=== PATIENT | female | born 1945 | race Caucasian/White ===

== ENCOUNTER 2017-08-25 08:51 | Emergency (ER) | payer MEDICARE, BC ==
[2017-08-25 09:26] LABS: #Eosinphils 0.2 thou/uL (0.0-0.7); #Monocytes 0.3 thou/uL (0.11-0.59); #Neutrophils 1.8 thou/uL (1.40-6.50); %Basophils 1.1 % (0.0-1.0); %Eosinophils 5.9 % (0.0-10.0); %Lymphocytes 28.7 % (21.0-51.0); %Monocytes 9.7 % (0.0-10.0); Hematocrit 46.4 % (36.0-47.0); Mean Platelet Volume 7.1 fL (7.4-10.4); Red Blood Cell (RBC) Count 5.05 mill/uL (4.20-5.40); White Blood Cell (WBC) Count 3.4 thou/uL (4.8-10.8)
[2017-08-25 09:45] LABS: ALT (SGPT) 28 U/L (8-55); AST (SGOT) 22 U/L (5-34); Alkaline Phosphatase 91 U/L (40-150); Anion Gap 14 mmol/L (10-20); BUN (Urea Nitrogen) 17 mg/dL (9.8-20.1); Bilirubin, Total 0.5 mg/dL (0.2-1.2); Calc. Creatinine Clearance 0 mL/min (70-130); Calcium 9.4 mg/dL (7.8-10.44); Carbon Dioxide 25 mmol/L (23-31); Chloride 106 mmol/L (98-107); Estimated GFR-MDRD 47; Globulin 3.2 g/dL (2.4-3.5)
== END 2017-08-25 10:33 | disposition home or self-care (01) ==
LOC: ERS 08:51
DX: L03.116 Cellulitis of left lower limb (principal); L03.114 Cellulitis of left upper limb; E03.9 Hypothyroidism, unspecified
CPT/HCPCS: 36415; 80053; 85025; 96372; J3490

== ENCOUNTER 2017-08-26 14:12 | Emergency (ER) | payer MEDICARE, BC ==
[2017-08-26] MEDS ORDERED: Vancomycin HCl 1 GM in Premix Bag 1 BAG IVPB SCH (15:19)
[2017-08-26] MEDS ORDERED: Piperacillin/Tazobactam 3.375 GM in Sodium Chloride 0.9% 100 ML IVPB SCH (15:45)
[2017-08-26 15:56] LABS: #Eosinphils 0.2 thou/uL (0.0-0.7); #Lymphocytes 1.1 thou/uL (1.20-3.40); #Monocytes 0.3 thou/uL (0.11-0.59); %Basophils 0.4 % (0.0-1.0); %Eosinophils 6.8 % (0.0-10.0); %Lymphocytes 29.1 % (21.0-51.0); %Monocytes 8.4 % (0.0-10.0); Mean Platelet Volume 7.3 fL (7.4-10.4); Red Blood Cell (RBC) Count 4.85 mill/uL (4.20-5.40); White Blood Cell (WBC) Count 3.6 thou/uL (4.8-10.8)
[2017-08-26 16:22] LABS: Anion Gap 12 mmol/L (10-20); BUN (Urea Nitrogen) 16 mg/dL (9.8-20.1); Calc. Creatinine Clearance 0 mL/min (70-130); Calcium 9.8 mg/dL (7.8-10.44); Carbon Dioxide 26 mmol/L (23-31); Chloride 104 mmol/L (98-107); Estimated GFR-MDRD 56
--- NOTE | 2017-08-26 18:06 | ULT ---
DOPPLER VENOUS ULTRASOUND OF THE LEFT LOWER EXTREMITY: Indication: Left lower leg pain with rash. TECHNIQUE: Bowser scale, color Doppler, and vascular duplex with spectral analysis was performed of the deep veno us structures of both lower extremities. The common femoral vein, superficial femoral vein, poplitea l vein, posterior tibial vein, proximal greater saphenous, and proximal profunda veins were assessed bilaterally. FINDINGS: Normal compression, flow, and augmentation is seen within the deep venous structures of the left low er extremity. IMPRESSION: No DVT within the left lower extremity. POS: LUIS ANTONIO
--- NOTE | 2017-08-26 21:16 | CON ---
DATE OF CONSULTATION: 08/26/2017 REQUESTING PHYSICIAN: dwight Serrano in the Emergency Department. REASON FOR CONSULTATION: Cellulitis. PRIMARY CARE PHYSICIAN: Dr. Aníbal Rojas. HISTORY OF PRESENT ILLNESS: Ms. Castillo is a very pleasant 72-year-old white female with increased redness, pain and itchiness, discomfort to her left lower extremity. She was in the Emergency Depar tment yesterday where she was diagnosed with cellulitis. She got some IV antibiotics and was switch ed over to p.o. clindamycin and sent home. She was not placed on any elevation or compression. The patient had no fevers or chills, no chest pain or shortness of breath, she had no increased white b lood cell count yesterday. Today, she comes back because the redness seems to be a little bit worse. She has no increased pain , so has no fevers or chills, no diarrhea or constipation, no nausea, vomiting, chest pain or cough or sputum production. In the Emergency Department, further workup showed her to be afebrile with a normal white blood cell count. We were called for possible admission for \\\\"failed outpatient therapy.\\\\" She has no other current complaints. PAST MEDICAL HISTORY: 1. Hypothyroidism. 2. History of renal stones. PAST SURGICAL HISTORY: Includes left breast cyst removal remotely. HOME MEDICATIONS: 1. Biotin. 2. Aspirin 81 mg daily. 3. Levothyroxine 100 mcg daily. 4. Clindamycin 300 mg p.o. q.i.d. started yesterday. ALLERGIES: NKDA. FAMILY HISTORY: Negative for clotting or bleeding disorder. No immune dysfunction. No history of coronary disease. SOCIAL HISTORY: Negative for habits x3. She is . Her must be having hand surgery t omorrow. REVIEW OF SYSTEMS: A 10-point review of systems was performed, negative for all other systems excep t stated as per HPI. PHYSICAL EXAMINATION: VITAL SIGNS: Temperature 98.1, pulse 78, blood pressure 150/61, respiratory rate 16 and satting 97% on room air. GENERAL: She is awake. She is alert. She is oriented x3. She is a well-developed, well-nourished , elderly white female who appears to be in no acute distress. HEENT: Normocephalic and atraumatic. Pupils are equal, round and reactive to light bilaterally. M ucous membranes are moist. She had no visible lesions. No thrush. NECK: Supple. She has no lymphadenopathy, no JVD, no thyromegaly. She has normal carotid upstroke . LUNGS: Clear to auscultation bilaterally without wheezes, rales or rhonchi. CARDIOVASCULAR: Normal cardiac and regular. She has no audible murmurs. Normal S1 and S2. ABDOMEN: Soft. It is nontender and nondistended. No masses, no organomegaly. She has normoactive bowel sounds present in all 4 quadrants. EXTREMITIES: No cyanosis, no clubbing. She has trace edema of her bilateral lower extremities. Daniela lebron has some blotchy redness outlined on her left lower extremity that appears to be just outside the borders from yesterday. It is slightly tender and slightly increased heat. Review of her toes show s she does have some very mild tinea pedis. She does have onychomycosis in several areas and some c allus formation. MUSCULOSKELETAL: is normal to inspection. She has no inflamed joints. No palpable joint effusion. NEUROLOGIC: Cranial nerves II-XII are grossly intact without any focal deficits, normal speech, and 5/5 strength. LABORATORY DATA: CMP is completely normal. Lactic acid 1.0. Liver functions are from yesterday. White blood cell count today is 3.6, hemoglobin 14.6, hematocrit of 45 and platelets of 201,000. IMAGING DATA: Ultrasound today showed no evidence of DVT. PLAN: 1. Streptococcal cellulitis: Likely group A strep. The patient was on clindamycin, which is bacte riostatic and will be slow to show improvement. The patient did not get any elevation nor compressi on, with extra-toxin production would have increased redness and edema dependently. I will place Ke rlix and Coban wrap, I have encouraged the patient to go by the pharmacy tonight or tomorrow and get some compression stockings to wear to keep that site as she can tolerate. I will start her on Kefl ex 500 t.i.d. for 14 days and continue Keflex for the next 72 hours and then she can stop that. In total, she will need to wear the compression for the next 2-3 weeks and she is to follow up with the primary doctor within next week or so. She was instructed to return back to the Emergency Departme for increased temperature greater than or equal to 101.0, increasing pain, or worsening despite t aking the antibiotics. 2. Hypothyroidism. We will continue levothyroxine.
== END 2017-08-26 19:01 | disposition home or self-care (01) ==
LOC: ERS 14:12
DX: L03.116 Cellulitis of left lower limb (principal); E03.9 Hypothyroidism, unspecified; Z79.82 Long term (current) use of aspirin; Z79.899 Other long term (current) drug therapy
CPT/HCPCS: 80048; 83605; 85025; 96365; J2543; J3370; J7050

== ENCOUNTER 2017-08-28 14:22 | Outpatient (CLI) | payer MEDICARE, BC ==
--- NOTE | 2017-08-28 17:30 | ULT ---
CAROTID ARTERIAL DOPPLER ULTRASOUND 08/28/17 COMPARISON: None. HISTORY: Right carotid arterial calcifications, assess for carotid artery stenosis. TECHNIQUE: Multiplanar vinson scale sonographic imaging of the arterial structures of the neck obtained with colo r flow and spectral analysis. FINDINGS: Antegrade blood flow and normal arterial waveforms are seen within the carotid and vertebral system bilaterally. VESSELS PSV (cm/s) EDV (cm/s) Right CCA 94 18 Right ICA 104 58 Right ECA 109 9 Left CCA 73 16 Left ICA 128 41 Left ECA 89 6 ICA/CCA ratio is 1.1 on the right and 1.8 on the left. IMPRESSION: Mildly elevated velocity within the left internal carotid artery, correlating with a moderate degree of stenosis (50-69%). POS: LUIS ANTONIO
== END 2017-08-28 14:23 | disposition home or self-care (01) ==
LOC: ULT 14:22
PROVIDERS: ATTEND Family Medicine
DX: I65.21 Occlusion and stenosis of right carotid artery (principal)
CPT/HCPCS: 93880

== ENCOUNTER 2022-08-22 04:51 | Inpatient (IN) | payer MEDICARE, BC ==
[2022-08-22] MEDS ORDERED: FENTANYL 50 MCG/ML VIAL 50 MCG/ML VIAL ONE ×2 (05:06→06:51)
[2022-08-22] MEDS ORDERED: Ondansetron PF 4 MG/2 ML Vial ONE ×2 (05:07→16:48)
[2022-08-22 06:30] LABS: Hemoglobin 14.1 g/dL (12.0-16.0); Mean Corpuscular HGB CONC 31.9 g/dL (32.0-36.0); Mean Corpuscular Hemoglobin 28.9 pg (27.0-31.0); Mean Corpuscular Volume 90.8 fl (78.0-98.0); Mean Platelet Volume 8.2 fL (7.4-10.4); Platelet Count 195 thou/uL (130-400); RBC Distribution Width 12.6 % (11.5-14.5); Red Blood Cell (RBC) Count 4.86 mill/uL (4.20-5.40); White Blood Cell (WBC) Count 17.3 thou/uL (4.8-10.8)
[2022-08-22 06:44] LABS: Band 45 % (5-11); MDiff Complete? YES; Metamyelocyte 1 % (0-0); Monocytes 4 % (0-10); Neutrophil 50 % (42-75); Platelet Morphology Comment Appears Adequate; RBC Morphology Normal; Reflex for Review?? YES
[2022-08-22 07:26] LABS: ALT (SGPT) 35 U/L (8-55); AST (SGOT) 34 U/L (5-34); Albumin 3.9 g/dL (3.4-4.8); Alkaline Phosphatase 98 U/L (40-110); Anion Gap 20 mmol/L (10-20); BUN (Urea Nitrogen) 18 mg/dL (9.8-20.1); Calc. Creatinine Clearance 0 mL/min (70-130); Calcium 9.7 mg/dL (7.8-10.44); Carbon Dioxide 20 mmol/L (23-31); Chloride 102 mmol/L (98-107); Estimated GFR 38; Globulin 3.3 g/dL (2.4-3.5); Glucose 203 mg/dL (83-110); Lipase 9 U/L (8-78); Potassium 4.6 mmol/L (3.5-5.1); Protein, Total 7.2 g/dL (5.8-8.1); Sodium 137 mmol/L (136-145)
[2022-08-22 08:06] LABS: Bacteria/HPF 2+ HPF (None Seen); Bilirubin Negative (Negative); Blood, Urine Negative (Negative); Clarity Clear (Clear); Glucose, Urine (Dipstick) Normal (Negative); Ketone, Urine Negative (Negative); Leukocyte 500 Leu/uL (Negative); Nitrite Negative (Negative); Protein, Urine (Dipstick) 10 mg/dL (Neg-Trace); Specific Gravity, Urine 1.021 (1.002-1.036); Squamous Epithelial 0-3 HPF (0-3); Urobilinogen Normal mg/dL (Less than 2); WBC/HPF Greater than 50 HPF (0-3); pH, Urine 7.5 (5.0-9.0)
[2022-08-22] MEDS ORDERED: Ketorolac Tromethamine 30 MG/ML VIAL ONE (08:52)
[2022-08-22] MEDS ORDERED: cefTRIAXone\\ROCEPHIN 2 GM VIAL ONE (08:52)
[2022-08-22] MEDS ORDERED: Morphine 4 MG/ML VIAL ONE (08:52)
[2022-08-22] MEDS ORDERED: Iopamidol-370 76% 500 ML 1 ML ONE (09:36)
[2022-08-22] MEDS ORDERED: Ondansetron PF 4 MG/2 ML Vial IVP PRN (10:00)
[2022-08-22] MEDS ORDERED: Acetaminophen 325 MG TAB PO PRN (10:00)
[2022-08-22] MEDS ORDERED: Ondansetron ODT 4 MG TAB PO PRN (10:00)
[2022-08-22] MEDS ORDERED: Acetaminophen 650 MG Suppository PR PRN (10:00)
[2022-08-22 10:01] LABS: SARS-CoV-2 NAA Rapid Test Not Detected (NotDetected)
[2022-08-22 12:01] VITALS: BMI 25.5
[2022-08-22] MEDS: Morphine 4 MG/ML VIAL SLOW IVP PRN (13:58)
[2022-08-22] MEDS: Sodium Chloride 0.9% 1,000 ML IV SCH ×2 (14:00→20:00)
[2022-08-22] MEDS ORDERED: fentaNYL Citrate/PF 100 MCG/2 ML SYRINGE ONE (15:57)
[2022-08-22] MEDS ORDERED: B & O 30 MG SUPP ONE (15:57)
[2022-08-22] MEDS ORDERED: Levofloxacin 500 mg/D5W 100 ml Premix Bag ONE (16:32)
[2022-08-22] MEDS ORDERED: PROPOFOL 200 MG/20 ML VIAL ONE (16:48)
[2022-08-22] MEDS ORDERED: Dexamethasone 20 MG/5 ML VIAL ONE (16:48)
[2022-08-23] MEDS ORDERED: [UNRECOGNIZED DRUG - REMARK] IVPB PRN (02:31)
[2022-08-23 03:28] LABS: Lactic Acid 1.4 mmol/L (0.5-2.2)
[2022-08-23 03:39] LABS: Anion Gap 13 mmol/L (10-20); BUN (Urea Nitrogen) 21 mg/dL (9.8-20.1); Calc. Creatinine Clearance 44 mL/min (70-130); Calcium 9.2 mg/dL (7.8-10.44); Carbon Dioxide 20 mmol/L (23-31); Chloride 107 mmol/L (98-107); Estimated GFR 47; Glucose 171 mg/dL (83-110); Potassium 4.6 mmol/L (3.5-5.1); Sodium 135 mmol/L (136-145)
[2022-08-23] MEDS: Sodium Chloride 0.9% 1,000 ML IV SCH ×2 (04:32→18:30)
[2022-08-23 04:47] LABS: Band 44 % (5-11); Hemoglobin 12.3 g/dL (12.0-16.0); Lymphocytes 4 % (21-51); MDiff Complete? YES; Mean Corpuscular HGB CONC 32.3 g/dL (32.0-36.0); Mean Corpuscular Hemoglobin 30.1 pg (27.0-31.0); Mean Corpuscular Volume 93.5 fl (78.0-98.0); Mean Platelet Volume 7.5 fL (7.4-10.4); Monocytes 3 % (0-10); Neutrophil 49 % (42-75); Platelet Count 162 thou/uL (130-400); RBC Distribution Width 12.6 % (11.5-14.5); Red Blood Cell (RBC) Count 4.08 mill/uL (4.20-5.40); White Blood Cell (WBC) Count 16.5 thou/uL (4.8-10.8)
[2022-08-23] MEDS ORDERED: cefTRIAXone\\ROCEPHIN 1 GM in Sodium Chloride 0.9% 100 ML IVPB SCH (09:00)
[2022-08-23] MEDS: Morphine 4 MG/ML VIAL SLOW IVP PRN (09:22)
[2022-08-23] MEDS: Cefepime 1 GM in Sodium Chloride 0.9% 100 ML IVPB SCH ×2 (09:22→20:56)
[2022-08-24] MEDS: Sodium Chloride 0.9% 1,000 ML IV SCH (05:00)
[2022-08-24 05:25] LABS: #Eosinphils 0.1 thou/uL (0.0-0.7); #Lymphocytes 0.8 thou/uL (1.20-3.40); #Monocytes 0.3 thou/uL (0.11-0.59); #Neutrophils 9.8 thou/uL (1.40-6.50); %Basophils 0.1 % (0.0-1.0); %Eosinophils 0.7 % (0.0-10.0); %Lymphocytes 7.1 % (21.0-51.0); %Monocytes 2.3 % (0.0-10.0); %Neutrophils 89.9 % (42.0-75.0); Hemoglobin 11.3 g/dL (12.0-16.0); Mean Corpuscular HGB CONC 30.9 g/dL (32.0-36.0); Mean Corpuscular Hemoglobin 28.7 pg (27.0-31.0); Mean Corpuscular Volume 92.8 fl (78.0-98.0); Mean Platelet Volume 7.8 fL (7.4-10.4); Platelet Count 151 thou/uL (130-400); RBC Distribution Width 12.6 % (11.5-14.5); Red Blood Cell (RBC) Count 3.93 mill/uL (4.20-5.40); White Blood Cell (WBC) Count 10.9 thou/uL (4.8-10.8)
[2022-08-24 05:45] LABS: Anion Gap 8 mmol/L (10-20); BUN (Urea Nitrogen) 22 mg/dL (9.8-20.1); Calc. Creatinine Clearance 59 mL/min (70-130); Calcium 8.7 mg/dL (7.8-10.44); Carbon Dioxide 22 mmol/L (23-31); Chloride 113 mmol/L (98-107); Estimated GFR 66; Glucose 111 mg/dL (83-110); Potassium 3.8 mmol/L (3.5-5.1); Sodium 139 mmol/L (136-145)
[2022-08-24 08:27] VITALS: BP 111/62; TEMP 99.1
[2022-08-24] MEDS: Cefepime 1 GM in Sodium Chloride 0.9% 100 ML IVPB SCH (08:35)
== END 2022-08-24 17:36 | disposition home or self-care (01) | DRG 854 ==
LOC: ERS 04:51 → MSONC 10:00
PROVIDERS: ADMIT Internal Medicine; ATTEND Internal Medicine
PROC: 3E03329 Introduction of Other Anti-infective into Peripheral Vein, Percutaneous Approach (ICD-10-PCS; principal; 2022-08-22)
PROC: 0T778DZ Dilation of Left Ureter with Intraluminal Device, Via Natural or Artificial Opening Endoscopic (ICD-10-PCS; 2022-08-22)
PROC: BT1FZZZ Fluoroscopy of Left Kidney, Ureter and Bladder (ICD-10-PCS; 2022-08-22)
DX: A41.51 Sepsis due to Escherichia coli [E. coli] (principal); N13.6 Pyonephrosis; N17.9 Acute kidney failure, unspecified; Z20.822 Contact with and (suspected) exposure to COVID-19; E03.9 Hypothyroidism, unspecified; H40.9 Unspecified glaucoma; R65.20 Severe sepsis without septic shock; Z79.899 Other long term (current) drug therapy; Z79.890 Hormone replacement therapy
CPT/HCPCS: 36415; 74177; 74420; 80048; 80053; 81003; 81015; 83605; 83690; 85025; 85060; 87040; 87077; 87086; 87149; 87186; C2617; J0692; J0696; J1100; J1885; J1956; J2270; J2405; J2704; J3490; J7050; Q9967; U0002

== ENCOUNTER 2022-09-03 12:24 | Outpatient (CLI) | payer MEDICARE, BC ==
[2022-09-03 13:53] LABS: Bilirubin Neg (Negative); Blood, Urine 150 (Negative); Clarity Clear (Clear); Glucose, Urine (Dipstick) Normal (Negative); Ketone, Urine Negative (Negative); Leukocyte 25 (Negative); Nitrite Negative (Negative); Protein, Urine (Dipstick) Negative (Neg-Trace); Specific Gravity, Urine 1.005 (1.005-1.030); Urobilinogen Normal mg/dL (Less than 2)
[2022-09-03 13:58] LABS: Hemoglobin 12.4 g/dL (12.0-15.5); Mean Corpuscular HGB CONC 32.4 g/dL (32.0-36.0); Mean Corpuscular Hemoglobin 28.5 pg (27.0-33.0); Mean Platelet Volume 9.7 fl (7.4-10.4); Platelet Count 421 10x3/uL (150-450); RBC Distribution Width 14.3 % (11.5-14.5); Red Blood Cell (RBC) Count 4.35 10x6/uL (3.90-5.03); White Blood Cell (WBC) Count 7.5 10x3/uL (3.5-10.5)
[2022-09-03 14:10] LABS: Anion Gap 14 mmol/L (10-20); BUN (Urea Nitrogen) 9 mg/dL (9.8-20.1); Calc. Creatinine Clearance 0 mL/min (70-130); Calcium 9.1 mg/dL (7.8-10.44); Carbon Dioxide 24 mmol/L (23-31); Chloride 106 mmol/L (98-107); Estimated GFR 73; Glucose 84 mg/dL (83-110); INR-International Normal Ratio 0.9; PTT 27.5 sec (22.0-33.0); Prothrombin Time 10.3 sec (9.5-12.1); Sodium 140 mmol/L (136-145)
[2022-09-03 14:15] LABS: Squamous Epithelial 0-3 HPF (0-3); Transitional Epithelial 0-3 HPF (None Seen); WBC/HPF 0-3 HPF (0-3)
[2022-09-03 14:16] LABS: Bacteria/HPF Rare-Few HPF (None Seen); Mucous/LPF Rare LPF (<2+)
== END 2022-09-03 12:25 | disposition home or self-care (01) ==
LOC: LABBT 12:24
PROVIDERS: ATTEND Urology
DX: Z01.818 Encounter for other preprocedural examination (principal); N20.2 Calculus of kidney with calculus of ureter
CPT/HCPCS: 80048; 81001; 85027; 85610; 85730; 87086; 93005; 93010

== ENCOUNTER 2022-09-13 09:47 | Day surgery (SDC) | payer MEDICARE, BC ==
[2022-09-12 11:23] VITALS: BMI 24.2
[2022-09-13] MEDS ORDERED: fentaNYL PF 100 MCG/2 ML SYRINGE ONE (13:40)
[2022-09-13] MEDS ORDERED: Levofloxacin 500 mg/D5W 100 ml Premix Bag ONE (13:43)
[2022-09-13] MEDS ORDERED: PROPOFOL 200 MG/20 ML VIAL ONE (13:52)
[2022-09-13] MEDS ORDERED: Dexamethasone 20 MG/5 ML VIAL ONE (13:52)
[2022-09-13] MEDS ORDERED: Ondansetron PF 4 MG/2 ML Vial ONE (13:52)
[2022-09-13] MEDS ORDERED: ePHEDrine 50 MG/ML VIAL ONE (13:52)
[2022-09-13] MEDS ORDERED: FENTANYL 50 MCG/ML 1 ML VIAL ONE (14:56)
== END 2022-09-13 16:25 | disposition home or self-care (01) ==
LOC: SDC 09:47
PROVIDERS: ATTEND Urology
PROC: 0TC48ZZ Extirpation of Matter from Left Kidney Pelvis, Via Natural or Artificial Opening Endoscopic (ICD-10-PCS; principal; 2022-09-13)
PROC: 0T778DZ Dilation of Left Ureter with Intraluminal Device, Via Natural or Artificial Opening Endoscopic (ICD-10-PCS; 2022-09-13)
DX: N20.0 Calculus of kidney (principal); E03.9 Hypothyroidism, unspecified; Z79.890 Hormone replacement therapy; Z79.899 Other long term (current) drug therapy
CPT/HCPCS: 52356; 74420; J3010; 82365; 88300; C1713; C1769; C2617; J1100; J1956; J2405; J2704; J3490

== ENCOUNTER 2023-06-12 15:00 | Outpatient (CLI) | payer MEDICARE, BC | END 2023-06-12 15:01 | disposition home or self-care (01) | LOC: BICULT 15:00 | PROVIDERS: ATTEND Urology | DX: N20.0 Calculus of kidney (principal); N28.89 Other specified disorders of kidney and ureter | CPT/HCPCS: 76770 ==

== ENCOUNTER 2023-08-09 09:51 | Outpatient (CLI) | payer MEDICARE, BC | END 2023-08-09 09:52 | disposition home or self-care (01) | LOC: BICRAD 09:51 | PROVIDERS: ATTEND Specialist | DX: M17.11 Unilateral primary osteoarthritis, right knee (principal); M25.461 Effusion, right knee; R60.0 Localized edema ==